=== PATIENT | male | born 1940 | race Caucasian/White ===

== ENCOUNTER 2022-05-02 19:08 | Inpatient (IN) ==
[2022-05-02] MEDS ORDERED: Ondansetron 4 MG/2 ML VIAL IVP PRN (23:45)
[2022-05-02] MEDS ORDERED: Melatonin 3 MG TABLET PO PRN (23:45)
[2022-05-02] MEDS ORDERED: Vancomycin (wt based) 1,000 MG VIAL IVPB SCH (23:45)
[2022-05-02] MEDS ORDERED: Naloxone 0.4 MG/ML INJ IVP PRN (23:45)
[2022-05-02] MEDS ORDERED: Gadolinium Contrast Agent (WT Based) IV PRN (23:58)
[2022-05-03] MEDS ORDERED: 0.9 % Sodium Chloride 1,000 ML IVC SCH (00:15)
[2022-05-03] MEDS ORDERED: Dextrose Gel 15 GM/37.5 ML TUBE PO PRN ×2 (00:26)
[2022-05-03] MEDS ORDERED: D5% in Water 1,000 ML IVC PRN (00:26)
[2022-05-03] MEDS ORDERED: *HR* Dextrose 50 % in Water (Syg) 50 ML SYRINGE IVP PRN (00:26)
[2022-05-03] MEDS: *HR* HYDROcodone/Acet 5/325 mg TABLET PO PRN (01:44)
[2022-05-03] MEDS: Piperacillin/Tazobactam 3.375 GM in 0.9 % Sodium Chloride Mini Bag 100 ML IVPB SCH ×3 (01:45→15:06)
[2022-05-03 03:00] LABS: Bilirubin,Urine Negative (Negative); Blood,Urine Negative (Negative); Clarity,Urine Clear (Clear); Color,Urine Colorless (Yellow); Glucose,Urine (UA) Normal (Normal); Ketones,Urine Negative (Negative); Leukocyte Esterase,Urine Negative (Negative); Nitrite,Urine Negative (Negative); PH,Urine 6.5 pH Units (5.0-8.0); Protein,Urine Negative (Neg-Trace); Specific Gravity,Urine < 1.005 (1.010-1.025); Urobilinogen,Urine Normal (Normal)
[2022-05-03 03:04] LABS: Hematocrit 29.9 % (37.5-50.1); Hemoglobin 9.3 g/dL (12.9-16.9); Mean Corpuscular HGB Conc 31.1 g/dL (31.6-35.5); Mean Corpuscular Hemoglobin 28.7 pg (28.0-33.3); Mean Corpuscular Volume 92.3 fL (83.0-100.0); Mean Platelet Volume 9.5 fL (9.4-12.4); Platelet Count 332 K/mcL (140-400); Red Blood Count 3.24 M/mcL (4.19-5.50); Red Cell Distribution Width 13.2 % (11.5-14.5)
[2022-05-03 03:09] LABS: Estimated Average Glucose 117 mg/dl; Hemoglobin A1C 5.7 %
[2022-05-03 03:26] LABS: BUN/Creatinine Ratio 13 (6-26); Blood Urea Nitrogen 8 mg/dL (8-23); Carbon Dioxide 26 mEq/L (23-29); Chloride 103 mEq/L (98-107); Glucose 93 mg/dL (70-105); Magnesium 1.6 mg/dL (1.6-2.6); Osmolality,Calculated 280 (280-300); Phosphorous 2.7 mg/dL (2.7-4.5); Potassium 3.7 mEq/L (3.5-5.1); Sodium 136 mEq/L (136-145); eGFR For African Americans > 60 (> 60); eGFR For Non-African Americans > 60 (> 60)
[2022-05-03 03:52] LABS: Ferritin 35 ng/mL (20-250); Iron < 10 mcg/dL (65-175); Transferrin 194 mg/dL (203-362)
[2022-05-03] MEDS: Cyanocobalamin (B-12) 1,000 MCG TABLET PO SCH (07:39)
[2022-05-03] MEDS: Aspirin Enteric Coated 81 MG Tablet PO SCH (07:39)
[2022-05-03] MEDS ORDERED: amLODIPine 5 MG TABLET PO SCH (09:00)
[2022-05-03] MEDS ORDERED: lisinopriL 10 MG TABLET PO SCH (09:00)
[2022-05-03] MEDS: Artificial Tears SOLN 15 ML BOTTLE BOTH EYES SCH ×2 (17:25→20:17)
[2022-05-03] MEDS: Acetaminophen 325 MG TABLET PO PRN (20:17)
[2022-05-04] MEDS: Piperacillin/Tazobactam 3.375 GM in 0.9 % Sodium Chloride Mini Bag 100 ML IVPB SCH ×4 (00:11→23:59)
[2022-05-04] MEDS: Acetaminophen 325 MG TABLET PO PRN ×2 (02:11→15:08)
[2022-05-04 07:00] LABS: Hematocrit 30.1 % (37.5-50.1); Hemoglobin 9.5 g/dL (12.9-16.9); Mean Corpuscular HGB Conc 31.6 g/dL (31.6-35.5); Mean Corpuscular Hemoglobin 28.1 pg (28.0-33.3); Mean Corpuscular Volume 89.1 fL (83.0-100.0); Mean Platelet Volume 9.4 fL (9.4-12.4); Platelet Count 332 K/mcL (140-400); Red Blood Count 3.38 M/mcL (4.19-5.50); Red Cell Distribution Width 13.3 % (11.5-14.5); White Blood Count 24.1 K/mcL (4.3-11.1)
[2022-05-04 07:20] LABS: BUN/Creatinine Ratio 12 (6-26); Blood Urea Nitrogen 9 mg/dL (8-23); Calcium 8.1 mg/dL (8.6-10.3); Carbon Dioxide 27 mEq/L (23-29); Chloride 102 mEq/L (98-107); Glucose 84 mg/dL (70-105); Magnesium 1.7 mg/dL (1.6-2.6); Osmolality,Calculated 282 (280-300); Phosphorous 2.6 mg/dL (2.7-4.5); Sodium 137 mEq/L (136-145); eGFR For African Americans > 60 (> 60); eGFR For Non-African Americans > 60 (> 60)
[2022-05-04 07:42] LABS: Lymphocytes # 0.2 K/mcL (0.6-4.6); Monocytes # 1.7 K/mcL (0.0-1.3); Neutrophils # 22.2 K/mcL (1.6-8.9); Platelet Estimate Normal (Normal)
[2022-05-04] MEDS: Artificial Tears SOLN 15 ML BOTTLE BOTH EYES SCH ×4 (09:16→20:20)
[2022-05-04] MEDS: Aspirin Enteric Coated 81 MG Tablet PO SCH (09:16)
[2022-05-04] MEDS: Cyanocobalamin (B-12) 1,000 MCG TABLET PO SCH (09:16)
[2022-05-04] MEDS: *HR* HYDROcodone/Acet 5/325 mg TABLET PO PRN (20:19)
[2022-05-04 23:18] LABS: Adenovirus F 40/41 PCR Not detected (Not detect); Astrovirus PCR Not detected (Not detect); Campylobacter by PCR Not detected (Not detect); Cryptosporidium by PCR Not detected (Not detect); Cyclospora cayetanensis PCR Not detected (Not detect); Entamoeba histolytica PCR Not detected (Not detect); Enteroaggregative E.coli(EAEC) Not detected (Not detect); Enteropathogenic E.coli(EPEC) Not detected (Not detect); Enterotoxigenic E.coli (ETEC) Not detected (Not detect); Giardia lamblia PCR Not detected (Not detect); Norovirus GI/GII PCR Not detected (Not detect); Plesiomonas shigelloides PCR Not detected (Not detect); Rotavirus A PCR Not detected (Not detect); Salmonella PCR Not detected (Not detect); Sapovirus PCR Not detected (Not detect); Shig/EnteroinvasiveE coli EIEC Not detected (Not detect); Shigalike tox-prod E coli STEC Not detected (Not detect); Vibrio PCR Not detected (Not detect); Vibrio cholerae PCR Not detected (Not detect); Yersinia enterocolitica PCR Not detected (Not detect)
[2022-05-04 23:20] LABS: C.difficile Toxin A/B Gene PCR DETECTED (Not detect)
[2022-05-04] MEDS: Vancomycin Oral Soln 125 MG/2.5 ML UDC PO SCH (23:59)
[2022-05-05 01:06] LABS: Hemoglobin 9.2 g/dL (12.9-16.9); Red Blood Count 3.28 M/mcL (4.19-5.50); Red Cell Distribution Width 13.3 % (11.5-14.5)
[2022-05-05 01:08] LABS: Mean Corpuscular HGB Conc 31.7 g/dL (31.6-35.5); Mean Corpuscular Volume 88.4 fL (83.0-100.0); Mean Platelet Volume 9.7 fL (9.4-12.4); Platelet Count 360 K/mcL (140-400); White Blood Count 27.3 K/mcL (4.3-11.1)
[2022-05-05 01:28] LABS: Lymphocytes # 1.6 K/mcL (0.6-4.6); Monocytes # 2.2 K/mcL (0.0-1.3); Neutrophils # 23.5 K/mcL (1.6-8.9)
[2022-05-05 01:29] LABS: Platelet Estimate Normal (Normal)
[2022-05-05 01:30] LABS: BUN/Creatinine Ratio 19 (6-26); Blood Urea Nitrogen 15 mg/dL (8-23); Calcium 8.2 mg/dL (8.6-10.3); Carbon Dioxide 24 mEq/L (23-29); Chloride 102 mEq/L (98-107); Glucose 120 mg/dL (70-105); Magnesium 1.8 mg/dL (1.6-2.6); Osmolality,Calculated 282 (280-300); Phosphorous 2.7 mg/dL (2.7-4.5); Potassium 3.4 mEq/L (3.5-5.1); Sodium 135 mEq/L (136-145); eGFR For African Americans > 60 (> 60); eGFR For Non-African Americans > 60 (> 60)
[2022-05-05] MEDS: Piperacillin/Tazobactam 3.375 GM in 0.9 % Sodium Chloride Mini Bag 100 ML IVPB SCH (08:56)
[2022-05-05] MEDS: Vancomycin Oral Soln 125 MG/2.5 ML UDC PO SCH ×4 (08:58→22:03)
[2022-05-05] MEDS: Aspirin Enteric Coated 81 MG Tablet PO SCH ×2 (08:58→09:02)
[2022-05-05] MEDS: Cyanocobalamin (B-12) 1,000 MCG TABLET PO SCH ×2 (08:58→10:35)
[2022-05-05] MEDS: Artificial Tears SOLN 15 ML BOTTLE BOTH EYES SCH ×4 (08:58→22:03)
[2022-05-05] MEDS ORDERED: *HR* FentaNYL (PF) 100 MCG/2 ML VIAL IVP PRN (08:59)
[2022-05-05] MEDS ORDERED: Bupivacaine 0.5%-Epi 1:200,000 50 ML VIAL ONE (10:38)
[2022-05-05] MEDS ORDERED: Lidocaine -MPF 2% 5 ML VIAL ONE (11:38)
[2022-05-05] MEDS ORDERED: *HR* FentaNYL (PF) 100 MCG/2 ML VIAL ONE (12:17)
[2022-05-05] MEDS: metroNIDAZOLE 500 MG TABLET PO SCH ×2 (15:48→22:03)
[2022-05-05] MEDS: *HR* HYDROcodone/Acet 5/325 mg TABLET PO PRN (15:48)
[2022-05-05] MEDS: Cefepime HCl 2,000 MG in 0.9 % Sodium Chloride 10 ML IVP SCH (17:37)
[2022-05-06 03:58] LABS: Mean Corpuscular Volume 87.5 fL (83.0-100.0); Mean Platelet Volume 9.8 fL (9.4-12.4)
[2022-05-06 03:59] LABS: Hematocrit 27.9 % (37.5-50.1); Hemoglobin 8.9 g/dL (12.9-16.9); Mean Corpuscular HGB Conc 31.9 g/dL (31.6-35.5); Mean Corpuscular Hemoglobin 27.9 pg (28.0-33.3); Platelet Count 385 K/mcL (140-400); Red Blood Count 3.19 M/mcL (4.19-5.50); Red Cell Distribution Width 13.5 % (11.5-14.5); White Blood Count 25.6 K/mcL (4.3-11.1)
[2022-05-06 04:10] LABS: BUN/Creatinine Ratio 26 (6-26); Blood Urea Nitrogen 19 mg/dL (8-23); Calcium 7.8 mg/dL (8.6-10.3); Carbon Dioxide 24 mEq/L (23-29); Chloride 104 mEq/L (98-107); Glucose 98 mg/dL (70-105); Osmolality,Calculated 286 (280-300); Phosphorous 2.2 mg/dL (2.7-4.5); Potassium 3.4 mEq/L (3.5-5.1); Sodium 137 mEq/L (136-145); eGFR For African Americans > 60 (> 60); eGFR For Non-African Americans > 60 (> 60)
[2022-05-06 05:44] LABS: Lymphocytes # 0.5 K/mcL (0.6-4.6); Monocytes # 2.6 K/mcL (0.0-1.3); Neutrophils # 22.5 K/mcL (1.6-8.9)
[2022-05-06 05:45] LABS: Burr Cells 1+ (Not Present)
[2022-05-06 05:46] LABS: Platelet Estimate Normal (Normal)
[2022-05-06] MEDS: Cefepime HCl 2,000 MG in 0.9 % Sodium Chloride 10 ML IVP SCH (05:48)
[2022-05-06] MEDS ORDERED: Heparin 1,000 UNITS/500 mL 500 ML ONE (08:45)
[2022-05-06] MEDS ORDERED: 0.9 % Sodium Chloride 2,000 ML ONE (08:45)
[2022-05-06] MEDS ORDERED: *HR* Heparin 10,000 UNIT/10 ML VIAL ONE (08:45)
[2022-05-06] MEDS ORDERED: *HR* Midazolam HCl 2 MG/2 ML VIAL ONE (08:45)
[2022-05-06] MEDS ORDERED: Iopamidol - 300 100 ML INFUS..BTL ONE (08:45)
[2022-05-06] MEDS: metroNIDAZOLE 500 MG TABLET PO SCH ×3 (10:47→20:34)
[2022-05-06] MEDS: Vancomycin Oral Soln 125 MG/2.5 ML UDC PO SCH ×3 (10:47→20:34)
[2022-05-06] MEDS: Cyanocobalamin (B-12) 1,000 MCG TABLET PO SCH (10:48)
[2022-05-06] MEDS: Aspirin Enteric Coated 81 MG Tablet PO SCH (10:48)
[2022-05-06] MEDS: Artificial Tears SOLN 15 ML BOTTLE BOTH EYES SCH ×3 (10:49→20:33)
[2022-05-06] MEDS: *HR* HYDROcodone/Acet 5/325 mg TABLET PO PRN ×2 (12:43→18:55)
[2022-05-06] MEDS ORDERED: Naloxone 0.4 MG/ML INJ IVP PRN (18:27)
[2022-05-06] MEDS ORDERED: Ondansetron 4 MG/2 ML VIAL IVP PRN (18:27)
[2022-05-06] MEDS: Cefepime HCl 2,000 MG in 0.9 % Sodium Chloride Mini Bag 100 ML IVPB SCH (18:55)
[2022-05-06] MEDS: Melatonin 3 MG TABLET PO PRN (20:34)
[2022-05-06] MEDS: Acetaminophen 325 MG TABLET PO PRN (20:34)
[2022-05-07] MEDS ORDERED: 0.9 % Sodium Chloride 250 ML ONE (02:12)
[2022-05-07] MEDS: Artificial Tears SOLN 15 ML BOTTLE BOTH EYES SCH ×4 (08:00→20:09)
[2022-05-07] MEDS: Aspirin 81 MG TAB.CHEW PO SCH (08:00)
[2022-05-07] MEDS: Cefepime HCl 2,000 MG in 0.9 % Sodium Chloride Mini Bag 100 ML IVPB SCH ×2 (08:01→18:13)
[2022-05-07] MEDS: metroNIDAZOLE 500 MG TABLET PO SCH ×3 (08:01→19:53)
[2022-05-07 08:51] LABS: Basophils # 0.1 K/mcL (0.0-0.2); Basophils % 0.7 %; Eosinophils # 0.4 K/mcL (0.0-0.6); Eosinophils % 2.1 %; Hemoglobin 9.5 g/dL (12.9-16.9); Immature Granulocytes % 1.6 % (0-4); Lymphocytes # 0.9 K/mcL (0.6-4.6); Lymphocytes % 4.7 %; Mean Corpuscular HGB Conc 30.6 g/dL (31.6-35.5); Mean Corpuscular Hemoglobin 27.9 pg (28.0-33.3); Mean Corpuscular Volume 90.9 fL (83.0-100.0); Mean Platelet Volume 9.9 fL (9.4-12.4); Monocytes # 1.8 K/mcL (0.0-1.3); Monocytes % 9.1 %; Neutrophils # 16.3 K/mcL (1.6-8.9); Platelet Count 400 K/mcL (140-400); Red Blood Count 3.41 M/mcL (4.19-5.50); Segmented Neutrophils % 81.8 %; White Blood Count 19.9 K/mcL (4.3-11.1)
[2022-05-07 09:10] LABS: BUN/Creatinine Ratio 21 (6-26); Blood Urea Nitrogen 13 mg/dL (8-23); Calcium 7.8 mg/dL (8.6-10.3); Carbon Dioxide 22 mEq/L (23-29); Chloride 109 mEq/L (98-107); Glucose 85 mg/dL (70-105); Osmolality,Calculated 285 (280-300); Phosphorous 2.9 mg/dL (2.7-4.5); Potassium 3.6 mEq/L (3.5-5.1); Sodium 138 mEq/L (136-145); eGFR For African Americans > 60 (> 60); eGFR For Non-African Americans > 60 (> 60)
[2022-05-07] MEDS: *HR* HYDROcodone/Acet 5/325 mg TABLET PO PRN ×3 (11:55→22:45)
[2022-05-07] MEDS: Vancomycin Oral Soln 125 MG/2.5 ML UDC PO SCH ×4 (11:56→19:53)
[2022-05-07] MEDS: Acetaminophen 325 MG TABLET PO PRN (19:52)
[2022-05-07] MEDS: Melatonin 3 MG TABLET PO PRN (19:52)
[2022-05-08] MEDS: Morphine Sulfate 2 MG/ML SYRINGE IVP PRN ×3 (00:06→20:29)
[2022-05-08] MEDS: *HR* HYDROcodone/Acet 5/325 mg TABLET PO PRN ×2 (03:51→15:48)
[2022-05-08 06:24] LABS: Hemoglobin 8.6 g/dL (12.9-16.9); Mean Corpuscular HGB Conc 30.7 g/dL (31.6-35.5); Mean Corpuscular Hemoglobin 27.6 pg (28.0-33.3); Mean Corpuscular Volume 89.7 fL (83.0-100.0); Mean Platelet Volume 9.5 fL (9.4-12.4); Platelet Count 413 K/mcL (140-400); Red Blood Count 3.12 M/mcL (4.19-5.50); White Blood Count 14.3 K/mcL (4.3-11.1)
[2022-05-08 08:33] LABS: BUN/Creatinine Ratio 19 (6-26); Blood Urea Nitrogen 12 mg/dL (8-23); Calcium 7.5 mg/dL (8.6-10.3); Carbon Dioxide 22 mEq/L (23-29); Chloride 109 mEq/L (98-107); Glucose 74 mg/dL (70-105); Magnesium 1.9 mg/dL (1.6-2.6); Osmolality,Calculated 284 (280-300); Phosphorous 3.1 mg/dL (2.7-4.5); Potassium 3.4 mEq/L (3.5-5.1); Sodium 138 mEq/L (136-145); eGFR For African Americans > 60 (> 60); eGFR For Non-African Americans > 60 (> 60)
[2022-05-08] MEDS: Cefepime HCl 2,000 MG in 0.9 % Sodium Chloride Mini Bag 100 ML IVPB SCH (08:34)
[2022-05-08] MEDS: Artificial Tears SOLN 15 ML BOTTLE BOTH EYES SCH ×4 (08:40→20:30)
[2022-05-08] MEDS: Aspirin 81 MG TAB.CHEW PO SCH (08:42)
[2022-05-08] MEDS: metroNIDAZOLE 500 MG TABLET PO SCH (08:42)
[2022-05-08] MEDS: Vancomycin Oral Soln 125 MG/2.5 ML UDC PO SCH ×4 (08:42→20:26)
[2022-05-08 08:49] LABS: Monocytes # 0.6 K/mcL (0.0-1.3); Neutrophils # 13.2 K/mcL (1.6-8.9); Toxic Granulation Present (Not Present)
[2022-05-08 08:50] LABS: Hypochromasia Present (Not Present); Poikilocytosis 1+ (Not Present)
[2022-05-08] MEDS ORDERED: *HR* Enoxaparin 40 MG/0.4 ML SYRINGE SQ ONE (14:13)
[2022-05-08] MEDS: Doxycycline 100 MG CAPSULE PO SCH (20:25)
[2022-05-08] MEDS: Melatonin 3 MG TABLET PO PRN (20:25)
[2022-05-09] MEDS: *HR* HYDROcodone/Acet 5/325 mg TABLET PO PRN (01:04)
[2022-05-09] MEDS: Morphine Sulfate 2 MG/ML SYRINGE IVP PRN (03:01)
[2022-05-09] MEDS: Acetaminophen 325 MG TABLET PO PRN ×2 (04:32→19:33)
[2022-05-09 05:50] LABS: Hematocrit 30.9 % (37.5-50.1); Hemoglobin 9.4 g/dL (12.9-16.9); Mean Corpuscular HGB Conc 30.4 g/dL (31.6-35.5); Mean Corpuscular Hemoglobin 27.5 pg (28.0-33.3); Mean Corpuscular Volume 90.4 fL (83.0-100.0); Mean Platelet Volume 9.2 fL (9.4-12.4); Platelet Count 485 K/mcL (140-400); Red Blood Count 3.42 M/mcL (4.19-5.50); White Blood Count 13.9 K/mcL (4.3-11.1)
[2022-05-09 06:08] LABS: BUN/Creatinine Ratio 17 (6-26); Blood Urea Nitrogen 11 mg/dL (8-23); Calcium 7.7 mg/dL (8.6-10.3); Carbon Dioxide 22 mEq/L (23-29); Chloride 108 mEq/L (98-107); Glucose 84 mg/dL (70-105); Magnesium 1.9 mg/dL (1.6-2.6); Osmolality,Calculated 287 (280-300); Phosphorous 2.9 mg/dL (2.7-4.5); Potassium 3.7 mEq/L (3.5-5.1); Sodium 139 mEq/L (136-145); eGFR For African Americans > 60 (> 60); eGFR For Non-African Americans > 60 (> 60)
[2022-05-09 06:56] LABS: Eosinophils # 1.1 K/mcL (0.0-0.6); Lymphocytes # 0.8 K/mcL (0.6-4.6); Monocytes # 1.1 K/mcL (0.0-1.3); Neutrophils # 10.8 K/mcL (1.6-8.9); Platelet Estimate Normal (Normal)
[2022-05-09] MEDS: Vancomycin Oral Soln 125 MG/2.5 ML UDC PO SCH ×4 (08:09→19:33)
[2022-05-09] MEDS: Doxycycline 100 MG CAPSULE PO SCH ×2 (08:09→19:33)
[2022-05-09] MEDS: Artificial Tears SOLN 15 ML BOTTLE BOTH EYES SCH ×4 (08:09→19:34)
[2022-05-09] MEDS: Aspirin 81 MG TAB.CHEW PO SCH (08:09)
[2022-05-09] MEDS: Melatonin 3 MG TABLET PO PRN (19:33)
[2022-05-10 02:10] LABS: Hematocrit 29.9 % (37.5-50.1); Hemoglobin 9.3 g/dL (12.9-16.9); Mean Corpuscular HGB Conc 31.1 g/dL (31.6-35.5); Mean Corpuscular Hemoglobin 27.5 pg (28.0-33.3); Mean Corpuscular Volume 88.5 fL (83.0-100.0); Mean Platelet Volume 9.2 fL (9.4-12.4); Platelet Count 563 K/mcL (140-400); Red Blood Count 3.38 M/mcL (4.19-5.50); White Blood Count 14.9 K/mcL (4.3-11.1)
[2022-05-10 02:14] LABS: Chol/HDL Ratio 4.4 (0-4.9)
[2022-05-10 04:24] LABS: Eosinophils # 0.9 K/mcL (0.0-0.6); Lymphocytes # 0.6 K/mcL (0.6-4.6); Monocytes # 1.2 K/mcL (0.0-1.3); Neutrophils # 12.2 K/mcL (1.6-8.9); Platelet Estimate Increased (Normal)
[2022-05-10] MEDS: *HR* Enoxaparin 40 MG/0.4 ML SYRINGE SQ SCH (06:06)
[2022-05-10] MEDS ORDERED: Regadenoson 0.4 MG/5 ML SYRINGE IVP ONE (06:24)
[2022-05-10] MEDS: Vancomycin Oral Soln 125 MG/2.5 ML UDC PO SCH ×4 (09:27→20:02)
[2022-05-10] MEDS: Doxycycline 100 MG CAPSULE PO SCH ×2 (09:27→20:03)
[2022-05-10] MEDS: *HR* HYDROcodone/Acet 5/325 mg TABLET PO PRN ×2 (09:28→20:03)
[2022-05-10] MEDS: Aspirin 81 MG TAB.CHEW PO SCH (09:28)
[2022-05-10] MEDS: Artificial Tears SOLN 15 ML BOTTLE BOTH EYES SCH ×4 (09:29→20:02)
[2022-05-10] MEDS: Melatonin 3 MG TABLET PO PRN (20:03)
[2022-05-11] MEDS: Morphine Sulfate 2 MG/ML SYRINGE IVP PRN (00:57)
[2022-05-11] MEDS: *HR* Enoxaparin 40 MG/0.4 ML SYRINGE SQ SCH (06:06)
[2022-05-11] MEDS: Vancomycin Oral Soln 125 MG/2.5 ML UDC PO SCH ×4 (07:21→20:19)
[2022-05-11] MEDS: Aspirin 81 MG TAB.CHEW PO SCH (07:21)
[2022-05-11] MEDS: Artificial Tears SOLN 15 ML BOTTLE BOTH EYES SCH ×4 (07:21→20:19)
[2022-05-11] MEDS: Doxycycline 100 MG CAPSULE PO SCH ×2 (07:21→20:19)
[2022-05-11] MEDS: *HR* HYDROcodone/Acet 5/325 mg TABLET PO PRN ×2 (07:21→20:19)
[2022-05-11] MEDS: Melatonin 3 MG TABLET PO PRN (20:19)
[2022-05-12] MEDS: Morphine Sulfate 2 MG/ML SYRINGE IVP PRN ×2 (01:55→21:35)
[2022-05-12] MEDS: *HR* Enoxaparin 40 MG/0.4 ML SYRINGE SQ SCH (05:06)
[2022-05-12] MEDS: Doxycycline 100 MG CAPSULE PO SCH ×2 (08:52→20:14)
[2022-05-12] MEDS: Vancomycin Oral Soln 125 MG/2.5 ML UDC PO SCH ×4 (08:52→20:15)
[2022-05-12] MEDS: Aspirin 81 MG TAB.CHEW PO SCH (08:52)
[2022-05-12] MEDS: Artificial Tears SOLN 15 ML BOTTLE BOTH EYES SCH ×4 (08:53→20:14)
[2022-05-12 15:03] LABS: Basophils # 0.1 K/mcL (0.0-0.2); Basophils % 0.9 %; Eosinophils # 0.2 K/mcL (0.0-0.6); Eosinophils % 1.8 %; Hematocrit 34.7 % (37.5-50.1); Hemoglobin 10.6 g/dL (12.9-16.9); Immature Granulocytes % 3.5 % (0-4); Lymphocytes # 1.1 K/mcL (0.6-4.6); Lymphocytes % 8.4 %; Mean Corpuscular HGB Conc 30.5 g/dL (31.6-35.5); Mean Corpuscular Hemoglobin 27.1 pg (28.0-33.3); Mean Corpuscular Volume 88.7 fL (83.0-100.0); Mean Platelet Volume 9.1 fL (9.4-12.4); Monocytes # 1.1 K/mcL (0.0-1.3); Monocytes % 8.5 %; Platelet Count 676 K/mcL (140-400); Red Blood Count 3.91 M/mcL (4.19-5.50); Red Cell Distribution Width 14.2 % (11.5-14.5); Segmented Neutrophils % 76.9 %; White Blood Count 12.9 K/mcL (4.3-11.1)
[2022-05-12 15:15] LABS: BUN/Creatinine Ratio 16 (6-26); Blood Urea Nitrogen 9 mg/dL (8-23); Calcium 7.8 mg/dL (8.6-10.3); Carbon Dioxide 28 mEq/L (23-29); Chloride 105 mEq/L (98-107); Glucose 88 mg/dL (70-105); Magnesium 1.7 mg/dL (1.6-2.6); Osmolality,Calculated 286 (280-300); Phosphorous 2.9 mg/dL (2.7-4.5); Potassium 3.4 mEq/L (3.5-5.1); Sodium 139 mEq/L (136-145); eGFR For African Americans > 60 (> 60); eGFR For Non-African Americans > 60 (> 60)
[2022-05-12] MEDS: *HR* HYDROcodone/Acet 5/325 mg TABLET PO PRN (17:52)
[2022-05-12] MEDS: Melatonin 3 MG TABLET PO PRN (20:19)
[2022-05-13] MEDS: Acetaminophen 325 MG TABLET PO PRN (03:25)
[2022-05-13] MEDS: *HR* HYDROcodone/Acet 5/325 mg TABLET PO PRN (03:25)
[2022-05-13] MEDS: Morphine Sulfate 2 MG/ML SYRINGE IVP PRN ×3 (04:23→17:46)
[2022-05-13] MEDS: *HR* Enoxaparin 40 MG/0.4 ML SYRINGE SQ SCH (05:02)
[2022-05-13] MEDS: Vancomycin Oral Soln 125 MG/2.5 ML UDC PO SCH ×3 (08:23→17:46)
[2022-05-13] MEDS: Aspirin 81 MG TAB.CHEW PO SCH (08:23)
[2022-05-13] MEDS: Artificial Tears SOLN 15 ML BOTTLE BOTH EYES SCH ×3 (08:23→17:46)
[2022-05-13] MEDS ORDERED: Moderna Covid-19 Vaccine 100MCG/0.5mL IM ONE (11:32)
[2022-05-13 14:40] LABS: Adenovirus Not Detected (Not Detect); Coronavirus 229E Not Detected (Not Detect); Coronavirus HKU1 Not Detected (Not Detect); Coronavirus NL63 Not Detected (Not Detect); Coronavirus OC43 Not Detected (Not Detect); Human Metapneumovirus Not Detected (Not Detect); Human Rhinovirus/Enterovirus Not Detected (Not Detect); Influenza A Subtype 2009 H1 Not Detected (Not Detect); SARS-CoV-2 Not Detected (Not Detect)
[2022-05-13 14:41] LABS: Bordetella Pertussis Not Detected (Not Detect); Chlamydophila pneumoniae Not Detected (Not Detect); Influenza B Not Detected (Not Detect); Mycoplasma pneumoniae Not Detected (Not Detect); Parainfluenza Virus 1 Not Detected (Not Detect); Parainfluenza Virus 2 Not Detected (Not Detect); Parainfluenza Virus 3 Not Detected (Not Detect); Parainfluenza Virus 4 Not Detected (Not Detect); Respiratory Syncytial Virus Not Detected (Not Detect)
[2022-05-13 15:35] VITALS: BP 116/48; PULSE 66; TEMP 97.9; O2SAT 90
== END 2022-05-13 18:19 | DRG 854 ==
LOC: 3NENU → SUATTDRO 23:53
PROVIDERS: ADMIT Student in an Organized Health Care Education/Training Program; ATTEND Internal Medicine

== ENCOUNTER 2022-05-14 15:33 | Inpatient (IN) ==
[2022-05-14] MEDS ORDERED: Ondansetron ODT 4 MG TAB.RAPDIS SL PRN (18:46)
[2022-05-14] MEDS ORDERED: Naloxone 0.4 MG/ML INJ IVP PRN (18:46)
[2022-05-14] MEDS ORDERED: Acetaminophen 325 MG TABLET PO PRN (18:46)
[2022-05-14] MEDS ORDERED: *HR* OxyCODONE Immed Rel 5 MG TABLET PO PRN (18:46)
[2022-05-14] MEDS ORDERED: *HR* HYDROcodone/Acet 5/325 mg TABLET PO PRN (18:46)
[2022-05-14 19:39] LABS: Heparin anti-factor XA UFH 0.21 IU/mL (0.30-0.70); INR 1.3
[2022-05-14] MEDS ORDERED: *HR* Heparin 5,000 UNIT/ML VIAL IVP PRN ×2 (19:42)
[2022-05-14] MEDS ORDERED: *HR* Heparin 5,000 UNIT/ML VIAL IVP ONE (19:42)
[2022-05-14] MEDS ORDERED: Heparin 25,000UNIT/250ML 1/2NS 25,000 UNIT/250 ML IV.SOLN IVC SCH (19:45)
[2022-05-14 19:54] LABS: Hemoglobin 10.7 g/dL (12.9-16.9); Mean Corpuscular HGB Conc 30.6 g/dL (31.6-35.5); Mean Corpuscular Hemoglobin 27.9 pg (28.0-33.3); Mean Corpuscular Volume 91.1 fL (83.0-100.0); Mean Platelet Volume 8.9 fL (9.4-12.4); Platelet Count 643 K/mcL (140-400); Red Blood Count 3.84 M/mcL (4.19-5.50); Red Cell Distribution Width 14.6 % (11.5-14.5)
[2022-05-14 19:55] LABS: White Blood Count 19.9 K/mcL (4.3-11.1)
[2022-05-14] MEDS: Ringers Solution, Lactated 1,000 ML IVC SCH (20:38)
[2022-05-14] MEDS ORDERED: *HR* Heparin 5,000 UNIT/ML VIAL SQ SCH (22:00)
[2022-05-15 03:25] LABS: Basophils # 0.1 K/mcL (0.0-0.2); Basophils % 0.5 %; Eosinophils # 0.2 K/mcL (0.0-0.6); Eosinophils % 1.4 %; Hematocrit 29.4 % (37.5-50.1); Hemoglobin 9.2 g/dL (12.9-16.9); Immature Granulocytes % 1.1 % (0-4); Lymphocytes # 1.3 K/mcL (0.6-4.6); Lymphocytes % 8.5 %; Mean Corpuscular HGB Conc 31.3 g/dL (31.6-35.5); Mean Corpuscular Hemoglobin 27.9 pg (28.0-33.3); Mean Corpuscular Volume 89.1 fL (83.0-100.0); Mean Platelet Volume 9.2 fL (9.4-12.4); Monocytes # 1.2 K/mcL (0.0-1.3); Monocytes % 7.7 %; Neutrophils # 12.4 K/mcL (1.6-8.9); Platelet Count 634 K/mcL (140-400); Red Cell Distribution Width 14.6 % (11.5-14.5); Segmented Neutrophils % 80.8 %; White Blood Count 15.4 K/mcL (4.3-11.1)
[2022-05-15 03:42] LABS: Alanine Aminotransferase 10 Units/L (7-52); Albumin 2.2 g/dL (3.5-5.7); Albumin/Globulin Ratio 0.9 (1.1-2.2); Alkaline Phosphatase 34 Units/L (34-104); Aspartate Amino Transferase 15 Units/L (13-39); BUN/Creatinine Ratio 9 (6-26); Bilirubin,Total 0.2 mg/dL (0.3-1.0); Blood Urea Nitrogen 6 mg/dL (8-23); Calcium 7.6 mg/dL (8.6-10.3); Carbon Dioxide 26 mEq/L (23-29); Chloride 107 mEq/L (98-107); Globulin 2.4 g/dL (2.4-3.5); Glucose 105 mg/dL (70-105); Osmolality,Calculated 288 (280-300); Potassium 3.2 mEq/L (3.5-5.1); Sodium 140 mEq/L (136-145); Total Protein 4.6 g/dL (6.4-8.9); eGFR For African Americans > 60 (> 60); eGFR For Non-African Americans > 60 (> 60)
[2022-05-15] MEDS ORDERED: Aspirin Enteric Coated 81 MG Tablet PO SCH (09:00)
[2022-05-15] MEDS: Ringers Solution, Lactated 1,000 ML IVC SCH (09:51)
[2022-05-15] MEDS ORDERED: *HR* Propofol 200 MG/20 ML VIAL IVP ONE (10:07)
[2022-05-15] MEDS ORDERED: Lidocaine -MPF 2% 5 ML VIAL ONE (10:09)
[2022-05-15] MEDS ORDERED: *HR* Rocuronium Bromide 50 MG/5 ML VIAL ONE ×2 (10:09→13:37)
[2022-05-15] MEDS ORDERED: *HR* Heparin 5,000 UNIT/ML VIAL ONE ×2 (10:29→13:40)
[2022-05-15] MEDS ORDERED: *HR* Phenylephrine 10 MG/ML VIAL ONE (11:01)
[2022-05-15] MEDS ORDERED: Ondansetron 4 MG/2 ML VIAL IVP PRN ×2 (11:03→16:00)
[2022-05-15] MEDS ORDERED: *HR* HYDROmorphone PF 0.5 MG/0.5 ML SYRINGE IVP PRN ×2 (11:03→16:00)
[2022-05-15] MEDS ORDERED: *HR* FentaNYL (PF) 100 MCG/2 ML VIAL IVP PRN ×2 (11:03→16:00)
[2022-05-15] MEDS ORDERED: Albuterol 2.5 MG/3 ML NEBULIZER IH PRN ×2 (11:03→16:00)
[2022-05-15] MEDS ORDERED: *HR* FentaNYL (PF) 100 MCG/2 ML VIAL ONE ×2 (11:05→14:13)
[2022-05-15] MEDS ORDERED: Heparin 1,000 UNITS/500 mL 500 ML ONE (11:36)
[2022-05-15] MEDS ORDERED: Iopamidol - 300 100 ML INFUS..BTL ONE (12:04)
[2022-05-15] MEDS ORDERED: Ondansetron 4 MG/2 ML VIAL ONE (12:59)
[2022-05-15] MEDS ORDERED: CeFAZolin Syr 2,000MG/20 ML 2,000 MG/20 ML SYRINGE IVPB ONE (13:45)
[2022-05-15] MEDS ORDERED: Sugammadex Sodium 200 MG/2 ML VIAL IV ONE (14:44)
[2022-05-15] MEDS ORDERED: Ondansetron ODT 4 MG TAB.RAPDIS SL PRN (16:00)
[2022-05-15] MEDS ORDERED: Ringers Solution, Lactated 1,000 ML IVC SCH (16:00)
[2022-05-15] MEDS ORDERED: Heparin 25,000UNIT/250ML 1/2NS 25,000 UNIT/250 ML IV.SOLN IVC SCH (16:00)
[2022-05-15] MEDS ORDERED: Acetaminophen 325 MG TABLET PO PRN (16:00)
[2022-05-15] MEDS ORDERED: *HR* Heparin 5,000 UNIT/ML VIAL IVP PRN ×2 (16:00)
[2022-05-15] MEDS ORDERED: Naloxone 0.4 MG/ML INJ IVP PRN ×2 (16:00)
[2022-05-15] MEDS ORDERED: *HR* Labetalol 20 MG/4 ML SYRINGE IVP PRN (16:00)
[2022-05-15] MEDS: Artificial Tears SOLN 15 ML BOTTLE BOTH EYES SCH ×2 (17:38→20:13)
[2022-05-15] MEDS ORDERED: Ringers Solution, Lactated 500 ML IVC ONE ×2 (19:50→22:13)
[2022-05-15] MEDS: *HR* HYDROcodone/Acet 5/325 mg TABLET PO PRN (22:54)
[2022-05-16] MEDS: *HR* HYDROcodone/Acet 5/325 mg TABLET PO PRN ×2 (03:22→19:20)
[2022-05-16 03:54] LABS: Basophils % 0.1 %; Hematocrit 27.3 % (37.5-50.1); Hemoglobin 8.5 g/dL (12.9-16.9); Immature Granulocytes % 0.8 % (0-4); Lymphocytes # 0.5 K/mcL (0.6-4.6); Lymphocytes % 2.5 %; Mean Corpuscular HGB Conc 31.1 g/dL (31.6-35.5); Mean Corpuscular Hemoglobin 27.6 pg (28.0-33.3); Mean Corpuscular Volume 88.6 fL (83.0-100.0); Mean Platelet Volume 9.2 fL (9.4-12.4); Monocytes # 0.9 K/mcL (0.0-1.3); Monocytes % 4.4 %; Neutrophils # 18.8 K/mcL (1.6-8.9); Platelet Count 565 K/mcL (140-400); Red Blood Count 3.08 M/mcL (4.19-5.50); Red Cell Distribution Width 14.6 % (11.5-14.5); Segmented Neutrophils % 92.2 %; White Blood Count 20.4 K/mcL (4.3-11.1)
[2022-05-16 04:13] LABS: BUN/Creatinine Ratio 10 (6-26); Blood Urea Nitrogen 7 mg/dL (8-23); Calcium 7.6 mg/dL (8.6-10.3); Carbon Dioxide 25 mEq/L (23-29); Chloride 108 mEq/L (98-107); Glucose 158 mg/dL (70-105); Magnesium 1.4 mg/dL (1.6-2.6); Osmolality,Calculated 289 (280-300); Phosphorous 2.1 mg/dL (2.7-4.5); Potassium 3.5 mEq/L (3.5-5.1); Sodium 139 mEq/L (136-145); eGFR For African Americans > 60 (> 60); eGFR For Non-African Americans > 60 (> 60)
[2022-05-16] MEDS ORDERED: Magnesium Sulfate 1 GM/102 ML PIGGYBACK IVPB ONE (04:22)
[2022-05-16] MEDS: *HR* OxyCODONE Immed Rel 5 MG TABLET PO PRN ×2 (07:54→15:32)
[2022-05-16] MEDS: Artificial Tears SOLN 15 ML BOTTLE BOTH EYES SCH ×4 (07:55→20:51)
[2022-05-16 08:16] VITALS: TEMP 97.5
[2022-05-16] MEDS ORDERED: Aspirin Enteric Coated 81 MG Tablet PO SCH (09:00)
[2022-05-16] MEDS ORDERED: *HR* Heparin 5,000 UNIT/ML VIAL SQ SCH (18:00)
[2022-05-16 18:54] VITALS: BP 169/62; PULSE 90; O2SAT 92
== END 2022-05-16 21:00 | DRG 272 ==
LOC: 3BNU → SUATTDRO 17:32 → 2NNU 05-15 17:19
PROVIDERS: ADMIT Family Medicine; ATTEND Internal Medicine
PROC: VASFFBG (ICD-10-PCS; 2022-05-15 19:00)